=== PATIENT | male | born 1970 | race Hispanic/Latino ===

== ENCOUNTER 2022-10-22 13:01 | Emergency (ER) | payer MEDICAID ==
[~2022-10-22] VITALS: Ht 162.6 cm; Wt 59.0 kg
[~2022-10-22 13:01] MED LIST: ABAC1TAB15 PO
[2022-10-22 13:02] VITALS: BP 111/77
== END 2022-10-22 14:03 | disposition home or self-care (01) ==
LOC: EDH 13:01
DX: K40.90 Unilateral inguinal hernia, without obstruction or gangrene, not specified as recurrent (principal)
CPT/HCPCS: 99281